=== PATIENT | male | born 1970 | race Caucasian/White ===

== ENCOUNTER 2021-01-19 10:14 | Inpatient (IN) | payer BC ==
[2021-01-19] MEDS ORDERED: Acetaminophen 325 MG Tab PO PRN (10:42)
[2021-01-19] MEDS ORDERED: ceFAZolin 1 GM in Sodium Chloride 0.9% 50 ML IV SCH (11:00)
[2021-01-19] MEDS ORDERED: ceFAZolin 1 GM Vial IVPUSH SCH (11:00)
[2021-01-19] MEDS: Sodium Chloride 0.9% 10 ML Syringe FLUSH PRN (11:16)
[2021-01-19] MEDS ORDERED: diphenhydrAMINE 50 MG/ML SDV IVPUSH PRN (11:23)
[2021-01-19] MEDS ORDERED: Acetaminophen/Codeine 300-30 MG Tab PO PRN (11:30)
[2021-01-19] MEDS: Piperacillin/Tazobactam 3.375 GM in Sodium Chloride 0.9% 50 ML IV SCH ×2 (11:43→17:11)
[2021-01-19] MEDS ORDERED: VANCOmycin 2 GM/400 ML 2 GM in Premix Bag 1 BAG IV ONE ×2 (12:00→13:00)
--- NOTE | 2021-01-19 12:41 | HP ---
ADMISSION DATE: 01/19/2021 CHIEF COMPLAINT: Facial infection. HISTORY OF PRESENT ILLNESS: Mr. Coello is a 50-year-old man from [place] with a history of significant GERD, status post failed Eugenia procedure, obesity, hypertension, and anxiety. He was sent to [facility] for inpatient admission after being seen in the clinic by Dr. Villalba today for facial infection. According to the patient, this infection started 2 days ago when he felt a slight irritation in the right cheek. He later looked in the mirror and saw that it was red. Over the next 24 hours, it expanded in size and discomfort such that yesterday he was seen at the walk-in clinic in [place]. He was started on cephalexin, and this morning when he woke up, his face was more swollen, his eye was swollen shut, and it was more painful with sharp stabbing pain. He went to the clinic this morning and was sent here for admission. Chalo has taken 4 doses of cephalexin without major change so far. He has not had any other previous similar episodes. He has not had any dental pain or dental problems. He has not had a problem with furuncles, carbuncles, skin infections, etc. He did have symptoms of an upper respiratory infection 2 weeks ago that resolved over couple days. Chalo has also received his first COVID vaccine and was scheduled to get the second one tomorrow at [facility] in [place]. PAST MEDICAL HISTORY: 1. Eugenia procedure that was too tight, then loosened up at the [facility] and became too loose and has failed. 2. He has chronic essential hypertension. 3. Obesity. 4. He has had bilateral hip pain from trochanteric bursitis. 5. Left shoulder pain with rotator cuff tear. 6. He has had a nasal septal perforation with epistaxis. 7. Hyperlipidemia. 8. Snoring with possible MARLON. 9. Abdominal incisional hernia repair with mesh in 2015. MEDICATIONS: 1. Protonix 40 mg daily. 2. Cephalexin started yesterday as mentioned. 3. Losartan 100 mg daily. 4. Amlodipine 5 mg daily. 5. Lexapro 20 mg daily. 6. Trazodone 50 mg 1 to 2 at bedtime. 7. Phentermine 37.5 mg daily. 8. Melatonin 5 mg at bedtime. 9. Tums p.r.n. 10.Tylenol p.r.n. ALLERGIES: 1. Gabapentin, reaction unknown. 2. Penicillin, listed. He believes he had a rash when he was youngster, but knows no details of the event. FAMILY AND SOCIAL HISTORY: The patient is and is accompanied by his today. Family medical history is noncontributory. REVIEW OF SYSTEMS: GENERAL: No seizures, syncope. He has been trying to lose weight. HEENT: No recent change in hearing or vision. No sore throat or dental problems. No cough, dyspnea, chest pain, abdominal pain other than the chronic tenderness from his ventral herniorrhaphy procedure. No diarrhea, constipation, hematochezia, melena, hematuria, UTI symptoms, swelling. PHYSICAL EXAMINATION: GENERAL: He is alert, comfortable, and a good historian. VITAL SIGNS: Blood pressure 128/72, pulse 74 and regular, respirations normal, temperature 97.8, weight 254 pounds, 115 kg, BMI 38. SKIN: Shows bright erythema extending from 2 cm below his right eyelid down to his right lateral chin to just 4 cm anterior to his right ear to the nasal labial fold. No erythema on the left side or the bridge of his nose. HEENT: Oral exam reveals normal gums, normal nontender dentition. There is no induration or fluctuance over his facial redness. NECK: Supple. No palpable adenopathy. LUNGS: Clear. HEART: Regular without murmur or gallop. ABDOMEN: Obese, soft. He has slight tenderness over the midline incision. No recurrent hernias noted. EXTREMITIES: Show no edema. ASSESSMENT: 1. Cellulitis, right face. 2. Obesity. 3. Hypertension. 4. Gastroesophageal reflux disease with failed Eugenia procedure. 5. Anxiety. PLAN: We will treat with IV antibiotics because his rash was highly likely not allergic in nature. We will carefully treat with Zosyn. A test dose first with Benadryl and epinephrine available followed by full dosing accompanied by vancomycin. I anticipate a short hospital stay of 48 to 72 hours with plan for discharge to home when improved. /[id number] RO/YOSIL
[2021-01-19] MEDS ORDERED: Calcium Carbonate 500 MG Tab.Chew PO PRN (15:24)
[2021-01-19] MEDS ORDERED: VANCOmycin 1 GM/200 ML 1 GM in Premix Bag 1 BAG IV SCH (20:00)
[2021-01-19] MEDS: traZODone 50 MG Tab PO SCH (20:08)
[2021-01-19] MEDS: Escitalopram 20 MG Tab PO SCH (20:08)
[2021-01-19] MEDS: Pantoprazole 40 MG Tab.CR PO SCH (20:08)
[2021-01-19] MEDS: Melatonin 3 MG Tab PO SCH (20:09)
[2021-01-20] MEDS: Piperacillin/Tazobactam 3.375 GM in Sodium Chloride 0.9% 50 ML IV SCH ×4 (00:01→17:20)
[2021-01-20] MEDS: Vancomycin 1 GM, Vancomycin 750 MG in Sodium Chloride 0.9% 500 ML IV SCH ×2 (00:32→13:08)
[2021-01-20] MEDS: Sodium Chloride 0.9% 10 ML Syringe FLUSH PRN (05:59)
[2021-01-20] MEDS: Losartan 100 MG Tab PO SCH (08:37)
[2021-01-20] MEDS: amLODIPine 5 MG Tab PO SCH (08:37)
[2021-01-20] MEDS: Pantoprazole 40 MG Tab.CR PO SCH ×2 (08:37→20:17)
[2021-01-20] MEDS ORDERED: HYDROCORTISONE VALERATE 0.2% TOP PRN (08:37)
[2021-01-20] MEDS ORDERED: Non-Formulary Medication 1 Each (Esomeprazole [Nexium] 40 MG Cap) PO SCH (09:00)
--- NOTE | 2021-01-20 10:45 | PN ---
DATE SEEN: 01/20/2021 HISTORY: Chalo is a 50-year-old man who was treated first as an outpatient for cellulitis of the right face with cephalexin on 01/18. This did not improve and yesterday he was seen at the clinic by Dr. Villalba, who sent him over for admission and IV antibiotics. Chalo was started on IV Zosyn and vancomycin. He has tolerated these well and there was a question of a previous penicillin allergy proven not to be the case with his Zosyn. This morning, he feels slightly better. He did not sleep very well because of just general discomfort, but the pain is slightly improved. The rash has faded slightly. He did have some swelling around the right eye this morning in the area where the CPAP mask was pressing. PHYSICAL EXAMINATION: VITAL SIGNS: Blood pressure 132/82, temp 97, pulse 69, respirations normal, O2 sat 97% on room air. SKIN: Shows area of slightly more dull erythema extending from the lateral right nose to 2 inches in front of the left ear up to the lower orbit line and down through the mustache to the corner of his right mouth. There is mild skin induration. No fluctuance or apparent abscess. Respirations are easy. LABORATORY DATA: Showed a white count of 10,000 and a CRP of 5.2. Negative COVID. ASSESSMENT: Right facial cellulitis. PLAN: We will continue his IV antibiotics and his other medications. Plan for an additional 24 to 48 hours of acute hospital stay followed by discharge to home when improved. /[id number] CHRISTINE/GARETT
[2021-01-20] MEDS: Escitalopram 20 MG Tab PO SCH (20:17)
[2021-01-20] MEDS: traZODone 50 MG Tab PO SCH (20:17)
[2021-01-20] MEDS: Melatonin 3 MG Tab PO SCH (20:17)
[2021-01-21] MEDS: Piperacillin/Tazobactam 3.375 GM in Sodium Chloride 0.9% 50 ML IV SCH ×3 (00:04→10:48)
[2021-01-21] MEDS: Sodium Chloride 0.9% 10 ML Syringe FLUSH PRN ×3 (00:33→06:35)
[2021-01-21] MEDS: Vancomycin 1 GM, Vancomycin 750 MG in Sodium Chloride 0.9% 500 ML IV SCH ×2 (01:18→13:13)
[2021-01-21] MEDS: Pantoprazole 40 MG Tab.CR PO SCH (08:14)
[2021-01-21] MEDS: Losartan 100 MG Tab PO SCH (08:14)
[2021-01-21 08:15] VITALS: BP 137/85
[2021-01-21] MEDS: amLODIPine 5 MG Tab PO SCH (08:15)
[2021-01-21 08:55] VITALS: PULSE 68
--- NOTE | 2021-01-21 18:08 | DISCH ---
DISCHARGE DATE: 01/21/2021 PRIMARY FINAL DIAGNOSIS: Acute right facial cellulitis. OPERATIONS: None. COMPLICATIONS: None. SUMMARY: Chalo is a 50-year-old man who noted pain and redness in his face the day prior to admission. He was seen now at a walk-in clinic in [place], started on cephalexin and then the day of the morning of admission, he went to [facility] where he was evaluated by Dr. Llanos, found to have worsening facial cellulitis, and was sent to [facility] for admission. On admission, he was started on IV Zosyn and IV vancomycin. Over the next 24 hours, the patient improved. He remained afebrile and over the last 24 hours, his improvement continued. Admission CRP was 5.2 and then came down to 2.5 this morning. By the evening of 01/21/2021, he was deemed well enough to be discharged on oral antibiotic. He is sent home in improved condition to continue medications as follows: 1. Phentermine 37.5 mg daily. 2. Hydrocortisone valerate topically to the right cheek itching daily x5 days, then p.r.n. 3. Nexium 40 mg daily. 4. Augmentin 875 mg b.i.d. x1 week. 5. Bactrim DS one b.i.d. x1 week. 6. Trazodone 50 mg at bedtime. 7. Melatonin 5 mg at bedtime. 8. Losartan 100 mg daily. 9. Lexapro 20 mg at bedtime. 10.Calcium carbonate 4 tabs every 2 hours p.r.n. 11.Amlodipine 5 mg daily. 12.Tylenol p.r.n. He is asked to set up an appointment to be seen in [facility] in 1 week for followup. He is to call should there be questions or problems prior to that time. /[id number] CHRISTINE/GARETT
[2021-01-21] MEDS ORDERED: Amoxicillin/Clavulanate K 875-125 MG Tab PO SCH (21:00)
[2021-01-21] MEDS ORDERED: Sulfamethoxazole/Trimethoprim 800-160 MG Tab PO SCH (21:00)
== END 2021-01-21 16:50 | disposition home or self-care (01) | DRG 383 ==
LOC: FB.MS 10:41
PROVIDERS: ADMIT Family Medicine; ATTEND Family Medicine
DX: L03.211 Cellulitis of face (principal); K21.9 Gastro-esophageal reflux disease without esophagitis; E66.9 Obesity, unspecified; I10 Essential (primary) hypertension; F41.9 Anxiety disorder, unspecified; Z20.822 Contact with and (suspected) exposure to COVID-19; E78.5 Hyperlipidemia, unspecified; Z79.899 Other long term (current) drug therapy; Z88.0 Allergy status to penicillin
CPT/HCPCS: 36415; 80053; 80202; 85025; 86140; A9270-GY; J1200; J2543; J3370; J7040; U0002

== ENCOUNTER 2022-04-15 06:48 | Day surgery (SDC) | payer BC ==
[2022-04-15] MEDS ORDERED: Propofol 200 MG/20 ML SDV IV ONE (06:49)
[2022-04-15] MEDS ORDERED: Glycopyrrolate 0.2 MG/ML 5 ML MDV IV ONE (06:49)
[2022-04-15] MEDS ORDERED: Sodium Chloride 0.9% 10 ML Syringe FLUSH PRN (07:00)
[2022-04-15] MEDS ORDERED: Lactated Ringers 1,000 ML IV SCH (07:00)
[2022-04-15 10:42] VITALS: BP 148/79; PULSE 90
== END 2022-04-15 09:35 | disposition home or self-care (01) ==
LOC: FB.SDS 06:48
PROVIDERS: ATTEND Surgery
DX: Z12.11 Encounter for screening for malignant neoplasm of colon (principal); R13.10 Dysphagia, unspecified; I10 Essential (primary) hypertension; G47.30 Sleep apnea, unspecified; F41.9 Anxiety disorder, unspecified; K21.9 Gastro-esophageal reflux disease without esophagitis; K44.9 Diaphragmatic hernia without obstruction or gangrene; E66.9 Obesity, unspecified; K58.9 Irritable bowel syndrome, unspecified; Z98.84 Bariatric surgery status; Z79.811 Long term (current) use of aromatase inhibitors; Z79.899 Other long term (current) drug therapy; Z68.30 Body mass index [BMI] 30.0-30.9, adult
CPT/HCPCS: J2704; J3490; J7120

== ENCOUNTER 2024-03-05 09:08 | Emergency (ER) | payer OTHER ==
[2024-03-05] MEDS ORDERED: Sodium Chloride 0.9% 10 ML Syringe FLUSH PRN (09:38)
[2024-03-05 09:53] LABS: BASOPHILS PERCENT AUTO 0.3 % (0.3-3.8); EOSINOPHILS ABSOLUTE AUTO 0.1 x10-3/uL (0.0-0.6); EOSINOPHILS PERCENT AUTO 0.9 % (0.1-6.8); HEMATOCRIT 44.9 % (38.3-50.1); HEMOGLOBIN 15.1 g/dL (12.9-17.7); LYMPHOCYTES ABSOLUTE AUTO 1.1 x10-3/uL (0.5-4.5); LYMPHOCYTES PERCENT AUTO 15.1 % (15.8-45.3); MEAN CORPUSCULAR HEMOGLOBIN 29.4 pg (27.0-33.3); MEAN CORPUSCULAR HGB CONC 33.6 g/dL (28.7-35.3); MEAN CORPUSCULAR VOLUME 87.4 fL (80.8-98.7); MEAN PLATELET VOLUME 8.3 fL (6.7-11.0); MONOCYTES ABSOLUTE AUTO 0.5 x10-3/uL (0.0-1.2); MONOCYTES PERCENT AUTO 6.9 % (5.5-15.2); NEUTROPHILS ABSOLUTE AUTO 5.5 x10-3/uL (1.7-6.9); NEUTROPHILS PERCENT AUTO 76.8 % (40.3-71.8); PLATELET COUNT,PLT 224 x10(3)uL (117-477); RED BLOOD CELL COUNT 5.14 x10(6)uL (3.90-5.90); RED CELL DISTRIBUTION WIDTH 12.6 % (12.4-15.0); WHITE BLOOD CELL COUNT,WBC 7.2 x10-3/uL (3.2-10.1)
[2024-03-05 09:56] LABS: BLOOD UREA NITROGEN,BUN 23 mg/dL (7-18); CARBON DIOXIDE,CO2 34 mmol/L (21-32); CHLORIDE,CL 103 mmol/L (100-110); EST CRCL DRUG DOSING (CG) 85.43 mL/min; ESTIMATED GFR 90 mL/min (>60); GLUCOSE RANDOM 99 mg/dL (80-116); POTASSIUM,K 4.3 mmol/L (3.5-5.3); SODIUM,NA 143 mmol/L (135-145)
[2024-03-05 10:01] LABS: A/G RATIO 1.2; ALANINE AMINOTRANSFERASE,ALT 50 U/L (12-36); ALBUMIN 3.8 g/dL (3.5-5.2); ALKALINE PHOSPHATASE 88 IU/L (56-112); ASPARTATE AMNIOTRANSFERASE,AST 20 IU/L (5-25); BILIRUBIN TOTAL 0.6 mg/dL (0.1-1.3); MAGNESIUM 2.1 mg/dL (1.8-2.5); PROTEIN TOTAL,TP 6.9 g/dL (6.0-8.0)
[2024-03-05] MEDS: LORazepam 2 MG/ML SDV IVPUSH ONE (10:09)
[2024-03-05] MEDS: Sodium Chloride 0.9% 1,000 ML IV ONE (10:10)
[2024-03-05] MEDS: Glucagon,Human Recombinant 1 MG Vial IVPUSH ONE (10:11)
[2024-03-05 10:41] VITALS: BP 128/77; PULSE 66
== END 2024-03-05 11:25 ==
LOC: FB.ED 09:08
DX: K22.2 Esophageal obstruction (principal); T18.128A Food in esophagus causing other injury, initial encounter; I10 Essential (primary) hypertension; K21.9 Gastro-esophageal reflux disease without esophagitis; E13.9 Other specified diabetes mellitus without complications; Z79.899 Other long term (current) drug therapy
CPT/HCPCS: 36415; 80053; 83735; 84484; 85025; 93005; 96361; 96374; 96375; 99285-25; J1610; J2060; J7030